=== PATIENT | female | born 1995 | race Caucasian/White ===

== ENCOUNTER 2016-05-25 19:01 | Emergency (ER) | payer BC ==
[~2016-05-25] VITALS: Ht 165.1 cm; Wt 63.6 kg
[2016-05-25 19:08] VITALS: TEMP 36.3; Ht 165.1 cm; Wt 63.6 kg
[2016-05-25] MEDS ORDERED: SODIUM CHLORIDE 0.9% 500ML 500 ML IV STA (19:23)
[2016-05-25] MEDS ORDERED: ONDANSETRON INJ 2 MG/ML 2 ML VIAL IV STA (19:23)
[2016-05-25] MEDS ORDERED: D5W AND 1/2NSS 1,000 ML IV SCH (19:30)
[2016-05-25] MEDS ORDERED: BCPILLS PO (19:36)
[2016-05-25] MEDS ORDERED: LEVO330T PO (19:36)
--- NOTE | 2016-05-25 19:42 | EMERGENCY ROOM VISIT NOTE ---
History Report prepared by Adele: Te Brenner Under the Supervision of: Dr. Rosetta Marie M.D. First contact with patient: 19:12 Chief Complaint: VOMITING Stated Complaint: N/V, MCADD Nursing Triage Summary: pt has MCADD, pt c/o n/v/d after being at a wine tasting History of Present Illness The patient is a 20 year old female who presents to the Emergency Room with complaints of sudden onset vomiting and diarrhea that began 30 minutes prior to arrival. She also complains of sharp pain under her ribs and sharp pains in her left lower abdominal quadrant. The patient notes that she was at a wine tasting today but only had a couple samples and one full glass of wine. She states that there was a slight red coloration in her vomit and diarrhea, but she was drinking red patti, and eating mints which could have caused the coloration. The patient is diagnosed with a metabolic condition known as MCADD, which causes her to have low blood sugar. She felt as though her sugars were low after the persistent vomiting and felt like she was going to pass out. She did not experience syncope at any time. She has been in contact with multiple children that have had a GI bug lately. Source of History: patient Onset: 30 minutes [employer] Position: abdomen, other (Gastrointestinal) Quality: other (Vomiting/Diarrhea ) Timing: other (Sudden Onset) Associated Symptoms: + diarrhea, + vomiting Note: Patient felt like she could pass out. Review of Systems See HPI for pertinent positives & negatives. A total of 10 systems reviewed and were otherwise negative. Past Medical & Surgical Medical Problems: (1) MCADD MCADD Family History Cancer Social History Smoking Status: Never Smoker Marital Status: single Housing Status: lives with family Occupation Status: employed Current/Historical Medications Scheduled Control Pills ( Control Pills), 1 TAB PO DAILY Levocarnitine (Metabolic Modif (Levocarnitine), 330 MG PO TID Ondasetron Odt (Zofran Odt), 4 MG SL Q6H Allergies Coded Allergies: Sulfa Antibiotics (Verified Allergy, Unknown, hives, 05/25/16) Physical Exam Vital Signs Date Time Temp Pulse Resp B/P Pulse Ox O2 Delivery O2 Flow Rate FiO2 05/26/16 01:11 86 18 117/71 98 05/26/16 00:00 97 17 97 Room Air 05/25/16 23:30 99 15 05/25/16 23:19 116/69 05/25/16 22:30 100 21 05/25/16 21:43 113 05/25/16 21:39 99 16 110/74 98 Room Air 05/25/16 19:08 36.3 124 20 95/53 96 Room Air Physical Exam Vital signs reviewed. General: Well-appearing female, in no significant distress. HEENT: No scleral icterus, PERRLA, neck supple. Atraumatic. Dry mucous membranes. Cardiovascular: Regular rate and rhythm, no extra sounds. Pulmonary: Clear to auscultation bilaterally, normal work of breathing. Abdomen: Lower abdominal tenderness, no guarding or rigidity. Positive bowel sounds. Musculoskeletal: Atraumatic, no peripheral edema. Neurologic: Patient awake alert and oriented x 3 Skin: Warm, dry, no rash Medical Decision & Procedures ER Provider Diagnostic Interpretation: X-ray results as stated below per my interpretation and radiologist interpretation. Other radiology results as stated below per my review and radiologist interpretation: CT ABD/PELVIS IV CONTRAST ONLY CLINICAL HISTORY: Abdominal pain and vomiting. Possible appendicitis. COMPARISON STUDY: None. TECHNIQUE: Following the IV administration of 116 mL of Optiray-320, CT scan of the abdomen and pelvis was performed from the lung bases to the proximal femurs. Images are reviewed in the axial, sagittal, and coronal planes. IV contrast was administered without complication. CT DOSE: 281.18 mGy.cm FINDINGS: Lower chest: There is a 5 mm nodular airspace opacity within the right middle lobe. This is of doubtful acute clinical significance given the patient. Liver: The contrast-enhanced liver is normal in size, contour, and attenuation. There is no intrahepatic biliary ductal dilatation. The hepatic veins and portal veins are patent. Gallbladder: Unremarkable. Spleen: Normal in size and attenuation. Pancreas: Unremarkable. Adrenal glands: Unremarkable. Kidneys: There is symmetric renal cortical enhancement. The kidneys are normal in size without hydronephrosis. Bowel: Evaluation the bowel is limited given the lack of oral contrast. There are no transition zones indicate bowel obstruction. This is not possible to separate the appendix from the adjacent unopacified small bowel loops. There are no findings suspicious for acute appendicitis. There is borderline upper abdominal small bowel wall thickening. Peritoneum: There is no intraperitoneal free air or abdominal ascites. Vasculature: The abdominal aorta is normal in course and caliber. Adenopathy: None. Pelvic viscera: The bladder, and pelvic viscera are unremarkable. Skeletal structures: No destructive osseous lesions are seen. IMPRESSION: 1. Limited bowel evaluation due to the lack of orally administered contrast 2. No evidence of bowel obstruction. No evidence of free air 3. There is several borderline thickened mid abdominal small bowel loops. Given history of nausea and vomiting, this could indicate a mild enteritis 4. No evidence of appendicitis however the appendix was not visualized with certainty. Electronically signed by: Donnell Koroma M.D. 05/25/2016 10:13 PM Dictated Date/Time: 05/25/2016 10:04 PM Laboratory Results 05/25/16 20:38 Red Blood Count 5.15, Mean Corpuscular Volume 87.0, Mean Corpuscular Hemoglobin 31.1, Mean Corpuscular Hemoglobin Concent 35.7, Mean Platelet Volume 11.5, Neutrophils (%) (Auto) 88.6, Lymphocytes (%) (Auto) 4.7, Monocytes (%) (Auto) 6.0, Eosinophils (%) (Auto) 0.2, Basophils (%) (Auto) 0.1, Neutrophils # (Auto) 16.93, Lymphocytes # (Auto) 0.90, Monocytes # (Auto) 1.14, Eosinophils # (Auto) 0.04, Basophils # (Auto) 0.02 05/25/16 20:38 Test 05/25/16 00:15 05/25/16 20:15 05/25/16 20:38 Urine Color YELLOW Urine Appearance CLEAR (CLEAR) Urine pH 5.0 (4.5-7.5) Urine Specific [place] > 1.035 (1.000-1.030) Urine Protein NEG (NEG) Urine Glucose (UA) NEG (NEG) Urine Ketones NEG (NEG) Urine Occult Blood 1+ (NEG) Urine Nitrite NEG (NEG) Urine Bilirubin NEG (NEG) Urine Urobilinogen NEG (NEG) Urine Leukocyte Esterase NEG (NEG) Urine WBC (Auto) 5-10 /hpf (0-5) Urine RBC (Auto) 0-4 /hpf (0-4) Urine Hyaline Casts (Auto) 1-5 /lpf (0-5) Urine Epithelial Cells (Auto) >30 /lpf (0-5) Urine Bacteria (Auto) 1+ (NEG) Bedside Glucose 70 mg/dl (70-90) White Blood Count 19.11 K/uL (4.8-10.8) Red Blood Count 5.15 M/uL (4.2-5.4) Hemoglobin 16.0 g/dL (12.0-16.0) Hematocrit 44.8 % (37-47) Mean Corpuscular Volume 87.0 fL (80-100) Mean Corpuscular Hemoglobin 31.1 pg (25-34) Mean Corpuscular Hemoglobin Concent 35.7 g/dl (32-36) Platelet Count 347 K/uL (130-400) Mean Platelet Volume 11.5 fL (7.4-10.4) Neutrophils (%) (Auto) 88.6 % Lymphocytes (%) (Auto) 4.7 % Monocytes (%) (Auto) 6.0 % Eosinophils (%) (Auto) 0.2 % Basophils (%) (Auto) 0.1 % Neutrophils # (Auto) 16.93 K/uL (1.4-6.5) Lymphocytes # (Auto) 0.90 K/uL (1.2-3.4) Monocytes # (Auto) 1.14 K/uL (0.11-0.59) Eosinophils # (Auto) 0.04 K/uL (0-0.5) Basophils # (Auto) 0.02 K/uL (0-0.2) RDW Standard Deviation 38.6 fL (36.4-46.3) RDW Coefficient of Variation 12.2 % (11.5-14.5) Immature Granulocyte % (Auto) 0.4 % Immature Granulocyte # (Auto) 0.08 K/uL (0.00-0.02) Anion Gap 12.0 mmol/L (3-11) Est Creatinine Clear Calc Drug Dose 72.2 ml/min Estimated GFR () 82.5 Estimated GFR (Non- 71.2 BUN/Creatinine Ratio 18.6 (10-20) Calcium Level 9.7 mg/dl (8.5-10.1) Magnesium Level 1.9 mg/dl (1.8-2.4) Total Bilirubin 0.6 mg/dl (0.2-1) Direct Bilirubin 0.2 mg/dl (0-0.2) Aspartate Amino Transf (AST/SGOT) 19 U/L (15-37) Alanine Aminotransferase (ALT/SGPT) 17 U/L (12-78) Alkaline Phosphatase 52 U/L (45-117) Total Protein 8.8 gm/dl (6.4-8.2) Albumin 4.6 gm/dl (3.4-5.0) Lipase 140 U/L (73-393) Human Chorionic Gonadotropin, Qual NEG (NEG) Laboratory results per my review. Medications Administered Medications (Trade) Dose Ordered Sig/Ag Route Start Time Stop Time Status Last Admin Dose Admin Sodium Chloride (Nss 500ml) 500 ml @ 999 mls/hr Q31M STAT IV 05/25/16 19:23 05/25/16 19:53 DC 05/25/16 19:23 999 MLS/HR Ondansetron HCl 4 mg 4 mg NOW STAT IV 05/25/16 19:23 05/25/16 19:26 DC 05/25/16 19:23 4 MG Sodium Chloride/ Dextrose (Sodium Chloride 2.5MEQ/Ml 14.6% Inj/D10w) 1,062 ml @ 150 mls/hr Q7H5M IV 05/25/16 20:00 05/26/16 01:59 DC 05/25/16 20:00 150 MLS/HR Ondansetron HCl (ZOFRAN ODT 4MG Home Pack) 1 [facility] UD ONCE PO 05/26/16 01:00 05/26/16 01:01 DC 05/26/16 01:00 1 [facility] ED Course 1921: Past medical records reviewed. The patient was evaluated in room C10. A complete history and physical examination was performed. 1922: Ordered Zofran 4 mg IV, Sodium Chloride 500 mL @ 999 mL/hr IV. 1929: Ordered Dextrose/Sodium Chloride 1000 mL @ 150 mL/hr IV. 1958: I discussed the case with Dr. Mayes - [facility]. He advises i give the patient D-10 and normal saline. 1999: Ordered Sodium Chloride 1062 mL @ 150 mL/hr IV. 2051: I reevaluated the patient at this time she states that she does not believe she is sick enough to be transferred to [facility]. 2127: I spoke with Dr. Mayes again at this time. He would like me to run labs. 9: Upon reevaluation, the patient appeared to have improvement of her symptoms. I discussed findings with her. She verbalized agreement of the treatment plan. The patient was discharged home. Medical Decision The patient's history was concerning for nausea, vomiting, diarrhea, and abdominal pain. Differential diagnosis: Etiologies such as gastroenteritis, food borne illness, infections, appendicitis , diverticulitis, inflammatory bowel disease, obstruction, GI bleed, biliary pathology, as well as others were entertained. This pt was evaluated and appeared to be in no distress. IV access was obtained and lab work was drawn. PT was hydrated with NSS, given IV zofran for nausea. Lab work reveals a stable BSG. She was discussed with the metabolic d/ o fellow at [facility] who has recommended D10NS at 1.5x maintenance. Pt BG dropped to 70 prior to initiation of D10, pt was able to tolerate juice po. She was observed in the ED for several hours. Pt remained concerned bout lower abd pain , although this has been a problem for several months. A CT scan of abd and pelvis was obtained and reveals no acute abnl. Pt was informed of the findings and d/c home with zofran HP. She was asked to f/u with her doctor this week for reevaluation. She will return to the ED for worsening of symptoms or any medical concerns. Impression Primary Impression: Vomiting Additional Impressions: Diarrhea Lower abdominal pain MCADD Scribe Attestation The scribe's documentation has been prepared under my direction and personally reviewed by me in its entirety. I confirm that the note above accurately reflects all work, treatment, procedures, and medical decision making performed by me. Departure Information Dispostion Home / Self-Care Prescriptions Ondasetron Odt (ZOFRAN ODT) 4 Mg Tab 4 MG SL Q6H for Nausea, #10 TAB Prov: Rosetta Marie M.D. 05/26/16 Referrals No Doctor, Assigned (PCP) Forms HOME CARE DOCUMENTATION FORM, IMPORTANT VISIT INFORMATION Patient Instructions My [facility] Additional Instructions Diagnosis: Vomiting and diarrhea, lower abdominal pain Drink plenty of clear fluids. Tylenol 650 mg every 6 hours as needed for pain. Zofran 4 mg ODT every 6 hours as needed for nausea. Follow-up with your physician for reevaluation this week. Return to the ER for worsening of symptoms or any medical concerns. Problem Qualifiers
[2016-05-25] MEDS ORDERED: SODI CHLOR 2.5MEQ/ML 14.6% INJ 155 MEQ in DEXTROSE 10% 1,000 ML IV SCH (20:00)
[2016-05-25 20:57] LABS: BASO % 0.1 %; BASO ABS # 0.02 K/uL (0-0.2); COMPLETE YES; EOS % 0.2 %; HEMATOCRIT 44.8 % (37-47); IG% 0.4 %; LYMPH % 4.7 %; MEAN CORPUSCULAR HEMOGLOBIN 31.1 pg (25-34); MEAN CORPUSCULAR HGB CONC 35.7 g/dl (32-36); MEAN PLATELET VOLUME 11.5 fL (7.4-10.4); NEUT % 88.6 %; PLATELET COUNT 347 K/uL (130-400); RED BLOOD COUNT 5.15 M/uL (4.2-5.4); WHITE BLOOD COUNT 19.11 K/uL (4.8-10.8)
[2016-05-25 21:15] LABS: BUN/CREATININE RATIO 18.6 (10-20); CALCIUM 9.7 mg/dl (8.5-10.1); CREATININE 1.1 mg/dl (0.60-1.20); MAGNESIUM 1.9 mg/dl (1.8-2.4); POTASSIUM 3.8 mmol/L (3.5-5.1)
[2016-05-25 21:22] LABS: PREG INTERNAL NEGATIVE QC NEG CLEAR BACKGROUND; PREG INTERNAL POSITIVE QC POS CONTROL LINE
[2016-05-25] MEDS ORDERED: OPTIRAY 320 IV PRN (21:45)
--- NOTE | 2016-05-25 22:15 | DIAGNOSTIC IMAGING REPORT ---
CT ABD/PELVIS IV CONTRAST ONLY CLINICAL HISTORY: Abdominal pain and vomiting. Possible appendicitis. COMPARISON STUDY: None. TECHNIQUE: Following the IV administration of 116 mL of Optiray-320, CT scan of the abdomen and pelvis was performed from the lung bases to the proximal femurs. Images are reviewed in the axial, sagittal, and coronal planes. IV contrast was administered without complication. CT DOSE: 281.18 mGy.cm FINDINGS: Lower chest: There is a 5 mm nodular airspace opacity within the right middle lobe. This is of doubtful acute clinical significance given the patient. Liver: The contrast-enhanced liver is normal in size, contour, and attenuation. There is no intrahepatic biliary ductal dilatation. The hepatic veins and portal veins are patent. Gallbladder: Unremarkable. Spleen: Normal in size and attenuation. Pancreas: Unremarkable. Adrenal glands: Unremarkable. Kidneys: There is symmetric renal cortical enhancement. The kidneys are normal in size without hydronephrosis. Bowel: Evaluation the bowel is limited given the lack of oral contrast. There are no transition zones indicate bowel obstruction. This is not possible to separate the appendix from the adjacent unopacified small bowel loops. There are no findings suspicious for acute appendicitis. There is borderline upper abdominal small bowel wall thickening. Peritoneum: There is no intraperitoneal free air or abdominal ascites. Vasculature: The abdominal aorta is normal in course and caliber. Adenopathy: None. Pelvic viscera: The bladder, and pelvic viscera are unremarkable. Skeletal structures: No destructive osseous lesions are seen. IMPRESSION: 1. Limited bowel evaluation due to the lack of orally administered contrast 2. No evidence of bowel obstruction. No evidence of free air 3. There is several borderline thickened mid abdominal small bowel loops. Given history of nausea and vomiting, this could indicate a mild enteritis 4. No evidence of appendicitis however the appendix was not visualized with certainty. Electronically signed by: Donnell Koroma M.D. 05/25/2016 10:13 PM Dictated Date/Time: 05/25/2016 10:04 PM
[2016-05-26] MEDS ORDERED: ONDA4TAB10 SL (00:40)
[2016-05-26 00:46] LABS: URINE APPEARANCE CLEAR (CLEAR); URINE BILIRUBIN NEG (NEG); URINE COLOR YELLOW; URINE EPITHELIAL CELL AUTO >30 /lpf (0-5); URINE NITRITE NEG (NEG); UROBILINOGEN NEG (NEG); ZZUR CULT IF INDIC CLEAN CATCH YES
[2016-05-26 01:00] LABS: MANUAL MICROSCOPIC REQUIRED? NO; REVIEW REQ? NO; URINE SPECIFIC GRAVITY > 1.035 (1.000-1.030)
[2016-05-26] MEDS ORDERED: ONDANSETRON HOME PACK 4MG OD TAB PO ONE (01:00)
[2016-05-26 01:11] VITALS: BP 117/71; PULSE 86; O2SAT 98
--- NOTE | 2016-05-28 15:19 | Pharmacy Progress Note ---
ED Pharmacist Culture FollowUp Date of Service: May 28, 2016. Patient with Lactobacillus in urine culture. UA with >30 epithelial cells, no urinary symptoms noted in ED provider note. Likely contaminant - no antibiotics required. Case discussed with Dr. Collins.
== END 2016-05-26 01:12 | disposition home or self-care (01) ==
LOC: C.EDB 19:03 → C.EDC 05-26 01:12
DX: R11.10 Vomiting, unspecified (principal); R19.7 Diarrhea, unspecified; R10.30 Lower abdominal pain, unspecified; E88.9 Metabolic disorder, unspecified; Z79.3 Long term (current) use of hormonal contraceptives; Z79.899 Other long term (current) drug therapy